=== PATIENT | female | born 1980 | race Caucasian/White ===

== ENCOUNTER 2017-09-10 18:02 | Emergency (ER) | payer OTHER ==
[2017-09-10] MEDS ORDERED: Ketorolac Tromethamine 60 MG/2 ML VIAL ONE (18:35)
== END 2017-09-10 18:58 | disposition home or self-care (01) ==
LOC: BURERS 18:02
DX: G44.209 Tension-type headache, unspecified, not intractable (principal); I10 Essential (primary) hypertension; F17.210 Nicotine dependence, cigarettes, uncomplicated
CPT/HCPCS: 96372; J1885

== ENCOUNTER 2019-06-11 04:40 | Emergency (ER) | payer BC, OTHER ==
[2019-06-11] MEDS ORDERED: Nitroglycerin 0.4 MG TAB 1 EACH ONE ×2 (05:06→05:55)
[2019-06-11] MEDS ORDERED: Aspirin Chewable 81 MG TAB ONE (05:06)
[2019-06-11 05:20] LABS: #Basophils 0.1 thou/uL (0.0-0.2); #Eosinphils 0.1 thou/uL (0.0-0.7); #Lymphocytes 2.6 thou/uL (1.20-3.40); #Monocytes 0.7 thou/uL (0.11-0.59); #Neutrophils 4.5 thou/uL (1.40-6.50); %Basophils 0.7 % (0.0-1.0); %Eosinophils 0.7 % (0.0-10.0); %Lymphocytes 32.8 % (21.0-51.0); %Monocytes 8.6 % (0.0-10.0); %Neutrophils 57.3 % (42.0-75.0); Mean Corpuscular HGB CONC 32.5 g/dL (32.0-36.0); Mean Corpuscular Hemoglobin 30.4 pg (27.0-31.0); Mean Corpuscular Volume 93.5 fL (78.0-98.0); Mean Platelet Volume 10.3 fL (7.4-10.4); Platelet Count 164 thou/uL (130-400); RBC Distribution Width 12.8 % (11.5-14.5); White Blood Cell (WBC) Count 7.8 thou/uL (4.8-10.8)
[2019-06-11 05:34] LABS: ALT (SGPT) 30 U/L (8-55); AST (SGOT) 23 U/L (5-34); Albumin 3.9 g/dL (3.5-5.0); Alkaline Phosphatase 73 U/L (40-150); BUN (Urea Nitrogen) 17 mg/dL (7.0-18.7); Bilirubin, Total 0.7 mg/dL (0.2-1.2); Calc. Creatinine Clearance 0 mL/min (70-130); Calcium 9.5 mg/dL (7.8-10.44); Chloride 111 mmol/L (98-107); Estimated GFR-MDRD 57; Globulin 3.3 g/dL (2.4-3.5); Glucose 102 mg/dL (70-105); Lipase 47 U/L (8-78); Potassium 3.9 mmol/L (3.5-5.1); Protein, Total 7.2 g/dL (6.0-8.3); Sodium 139 mmol/L (136-145)
--- NOTE | 2019-06-11 10:14 | RAD ---
FRONTAL RADIOGRAPH CHEST: DATE: 06/11/2019. COMPARISON: None. HISTORY: Chest pain with nausea and vomiting. FINDINGS: Lungs are clear. Heart and mediastinal contours are within normal limits. IMPRESSION: No acute findings. POS: OFF
== END 2019-06-11 05:52 | disposition home or self-care (01) ==
LOC: BURERS 04:40
DX: R07.89 Other chest pain (principal); K21.9 Gastro-esophageal reflux disease without esophagitis; F17.210 Nicotine dependence, cigarettes, uncomplicated; I10 Essential (primary) hypertension; Z87.442 Personal history of urinary calculi; Z79.891 Long term (current) use of opiate analgesic
CPT/HCPCS: 36415; 71045; 80053; 83605; 83690; 84484; 85025; 93005

== ENCOUNTER 2022-11-19 15:24 | Emergency (ER) | payer BC ==
[2022-11-19] MEDS ORDERED: Nitroglycerin 2% Ointment 1 INCH/1 GM Packet ONE (15:47)
[2022-11-19] MEDS ORDERED: hydrALAZINE 20 MG/ML VIAL ONE (17:09)
== END 2022-11-19 18:27 | disposition home or self-care (01) ==
LOC: BURERS 15:24
DX: I10 Essential (primary) hypertension (principal); K21.9 Gastro-esophageal reflux disease without esophagitis; F17.210 Nicotine dependence, cigarettes, uncomplicated; Z79.899 Other long term (current) drug therapy
CPT/HCPCS: 93005; 96372; J0360